=== PATIENT | male | born 1975 | race Two or more races ===

== ENCOUNTER 2016-10-12 02:01 | Emergency (ER) | payer BC ==
[2016-10-12] MEDS ORDERED: Morphine INJ* 4 MG/ML 1 ML CARPUJECT IV ONE ×2 (02:04→02:24)
[2016-10-12] MEDS ORDERED: HYDROmorphone INJ* 1 MG/ML CARPUJECT SYRINGE IV SLOW PU ONE ×2 (03:00→03:59)
--- NOTE | 2016-10-12 03:17 | ED ---
Jose Cabral Rebecca, scribed for Haseeb Galvan MD on 10/12/16 at 0224 . Upper Extremity Pain - HPI Summary HPI Summary: Pt is a 41 y/o M BIBA who presents to ED c/o LUE pain s/p fall. 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 Pt c/o LUE pain that began immediately upon impact. Pain has been constant since onset and is characterized as sharp and severe, ranked 10/10. Sx aggravated by movement, alleviated by nothing. Denies any other pain including MARISCAL and CP. No medication allergies. Occupational injury. - History of Current Complaint Chief Complaint: EDExtremityUpper Stated Complaint: LEFT ARM INJURY Time Seen by Provider: 10/12/16 02:04 Hx Obtained From: Patient Mechanism Of Injury: Fall From Height Of: - approxiamtely 8 feet Onset/Duration: Started Minutes Ago - 45 minutes ago, Traumatic, Still Present Timing: Constant Severity Initially: Severe Severity Currently: Severe Pain Location: Arm - left, Wrist - left Character: Sharp Aggravating Factor(s): Movement Alleviating Factor(s): Nothing Associated Signs & Symptoms: Positive: Negative Related History: Occupational Injury - Allergies/Home Medications Allergies/Adverse Reactions: Allergies Allergy/AdvReac Type Severity Reaction Status Date / Time No Known Allergies Allergy Verified 10/12/16 02:19 PMH/Surg Hx/FS Hx/Imm Hx Previously Healthy: Yes Endocrine/Hematology History: Denies: Hx Diabetes Cardiovascular History: Denies: Hx Hypertension Infectious Disease History: No Infectious Disease History: Denies: Traveled Outside the [place] in Last 30 Days - Family History Known Family History: Positive: Unknown - Pt is a por historian due to pain - Social History Occupation: Employed Full-time Alcohol Use: None Hx Substance Use: No Review of Systems Negative: Chest Pain Positive: Arthralgia - LUE pain; Denies any other pain Negative: Headache All Other Systems Reviewed And Are Negative: Yes Physical Exam Triage Information Reviewed: Yes Vital Signs On Initial Exam: Initial Vitals Temp Pulse Resp BP Pulse Ox 98.4 F 63 16 121/73 99 10/12/16 02:05 10/12/16 02:05 10/12/16 02:05 10/12/16 02:05 10/12/16 02:05 Vital Signs Reviewed: Yes Appearance: Positive: Well-Appearing, Pain Distress - marked pain Skin: Positive: Warm Head/Face: Positive: Normal Head/Face Inspection ENT: Positive: Hearing grossly normal Respiratory/Lung Sounds: Positive: Breath Sounds Present Musculoskeletal: Positive: Other - obvious deformity left forearm, nvi distally Neurological: Positive: Sensory/Motor Intact, NV Bundle Intact Distally Diagnostics - Vital Signs Vital Signs Temp Pulse Resp BP Pulse Ox 10/12/16 02:13 15 10/12/16 02:05 98.4 F 63 16 121/73 99 - Laboratory Lab Statement: Any lab studies that have been ordered have been reviewed, and results considered in the medical decision making process. - Radiology Forearm XR Xray Interpretation: Positive (See Comments) - Comminuted, displaced, distal forearm fracture Radiology Interpretation Completed By: ED Physician Re-Evaluation - Re-Evaluation First Eval Re-Evaluation Time: 05:00 - pt seen, evaluated, splinted in ed by dr rosen Course/Dx - Course Assessment/Plan: Pt is a 41 y/o M BIBA who presents to ED with a CC of left arm/ wrist pain s/p fall from approximately 8 feet high. Denies any other pain including MARISCAL and CP. Occupational injury. Forearm XR reveals a comminuted, displaced distal forearm fracture. Discussed care of pt with Dr. Rosen, orthopedist, who will be coming in to the ED to reduce the fx. Pt was seen and splinted by Dr. Rosen in the ED. Pt will be d/c to home with a dx of forearm fx and a prescription for Percocets. - Diagnoses Provider Diagnoses: Forearm fracture - Physician Notifications Discussed Care Of Patient With: Dr. Rosen, orthopedist, who will reduce the fracture in the ED. Time Discussed With Above Provider: 02:46 - Critical Care Time Critical Care Time: 30-74 min Discharge - Discharge Plan Condition: Improved Disposition: HOME Patient Education Materials: Arm Fracture in Adults (ED) Print Language: PORTUGUESE Additional Instructions: Paper prescription for Percocet is attached. Get filled by home pharmacy. Elevate the arm, take Percocet for pain as prescribed. The documentation as recorded by the Jose hendrix Rebecca accurately reflects the service I personally performed and the decisions made by , Haseeb Galvan MD.
[2016-10-12] MEDS ORDERED: HYDROmorphone INJ* 1 MG/ML CARPUJECT SYRINGE ONE (03:55)
[2016-10-12] MEDS: HYDROmorphone INJ* 1 MG/ML CARPUJECT SYRINGE IV SLOW PU ONE ×2 (04:00→04:05)
[2016-10-12] MEDS ORDERED: oxyCODONE/Acetamin 5/325 MG* TAB PO ONE (05:11)
[2016-10-12] MEDS ORDERED: Ondansetron INJ* 2 MG/ML VIAL ONE (05:14)
[2016-10-12] MEDS ORDERED: Ondansetron INJ* 2 MG/ML VIAL IV ONE (05:15)
--- NOTE | 2016-10-12 07:46 | RAD ---
HISTORY: Fall, left wrist trauma COMPARISONS: None relevant available at the time of dictation VIEWS: 3, Frontal, lateral, and oblique views of the left breast FINDINGS: BONE DENSITY: Normal. BONES: There is a comminuted and dorsally angulated fracture of the distal radial metaphysis with articular extension. There is a nondisplaced fracture of the styloid process of the ulna JOINTS: There is no arthropathy. ALIGNMENT: There is no dislocation. SOFT TISSUES: Unremarkable. OTHER FINDINGS: None. IMPRESSION: COMMINUTED ANGULATED FRACTURE OF THE DISTAL RADIUS WITH ARTICULAR EXTENSION WITH A NONDISPLACED FRACTURE OF THE STYLOID PROCESS OF THE ALIGNMENT
--- NOTE | 2016-10-12 07:51 | RAD ---
INDICATION: Traumatic fracture left wrist was closed reduction COMPARISON: October 12, 2016 TECHNIQUE: AP and lateral views were obtained. FINDINGS: There is interval closed reduction with application of a cast with reduction of displacement and angular deformity. The bony detail is obscured in part by cast material. IMPRESSION: INTERVAL CLOSED REDUCTION.
--- NOTE | 2016-10-12 07:54 | CONS ---
ORTHOPEDIC CONSULTATION NOTE: DATE OF CONSULT: 10/12/16 - EMERGENCY DEPT. CHIEF COMPLAINT: Left wrist pain. HISTORY OF PRESENT ILLNESS: Mr. Dave is a 41-year-old right hand dominant male who fell 8 feet while working sometime around 12:30 a.m. on 10/12/16. He reports he landed on his left upper extremity and immediately had 10/10 pain in the left wrist. He denies any pain in the elbow, shoulder. He reports some left buttock pain. He denies any head trauma or loss of consciousness. The patient reports any attempt to move the left wrist causes severe pain and only immobilization decreases the pain. He denies any prior injury to the wrist. PAST MEDICAL HISTORY: Hepatitis C. PAST SURGICAL HISTORY: None. CURRENT MEDICATIONS: Patient says none. ALLERGIES: No known drug allergies. FAMILY HISTORY: None. REVIEW OF SYSTEMS: Positive for left wrist pain, left buttock pain, recent fall , hepatitis C history. The patient denies fevers, chills, chest pain, shortness of breath, nausea, vomiting, headache or dizziness. Otherwise, review of systems is negative or not relevant. PHYSICAL EXAM: Vitals: Temperature is 98.4, pulse is 75, blood pressure 113/ 72. General: The patient is a well-nourished male lying comfortably in bed. He is alert and oriented x3. Pleasant mood and appropriate affect. He is in obvious pain with exam. Left upper extremity: No tenderness to palpation around the shoulder or elbow. He has obvious deformity at the wrist with extreme tenderness to palpation here and swelling. He refuses to move his thumb or fingers. He reports full sensation to light touch in all nerve distributions and has a 2+ palpable radial pulse. DIAGNOSTIC STUDIES/LAB DATA: Radiographs of the left forearm show no obvious fracture about the elbow or mid shaft forearm. There is a comminuted dorsally displaced intra-articular fracture of the distal radius. There is an ulnar styloid fracture associated. ASSESSMENT AND PLAN: Mr. Dave is a 41-year-old right hand dominant male status post fall from a height of 8 feet with a closed left comminuted dorsally displaced distal radius fracture. This fracture is intraarticular and has an associated ulnar styloid fracture. The patient and I discussed these options. I do feel this will be an operative fracture. Although there is an oblique intraarticular nature to the dorsally displaced fragment, I feel that close reduction will improve the position on the lateral view a significant amount. The patient agrees to have closed reduction at the bedside. PROCEDURE NOTE: 1 mg of IV Dilaudid is given by the nurse at my instruction. 8 cc of 0.5% Marcaine are placed at the fracture site for local hematoma block. This is placed under sterile conditions. A gentle reduction maneuver is performed and the distal radius fracture is reduced and brought out to length without difficulty. The fracture is noted to be unstable on palpation. A well- padded sugar-tong splint is then placed with a posterior strut and covered with an Pete wrap. The patient tolerates the procedure well and has no complications. After close reduction at the bedside and splinting, the patient does have improved pain in the left wrist. He demonstrated some flexion and extension of his thumb as well as his index and long finger. He reports continued intact sensation to light touch. His hand is elevated. I will order new AP and lateral views of the left wrist to ensure a more satisfactory reduction. I explained to the patient that for full reduction of this fracture, he will likely require an open reduction and internal fixation. I have offered him an appointment to see my hand surgeon tomorrow morning here in [place]. He reports he is from [place] and will likely be travelling there. I made it very clear he should contact an orthopedic surgeon within the next 48 hours for appointment and to be evaluated. He is currently neurovascularly intact. He will be given pain medication and be nonweightbearing on the left upper extremity with ice and elevation. [id number]/[facility] #: [id number]
[2016-10-12 09:29] VITALS: BP 109/66
== END 2016-10-12 09:29 | disposition home or self-care (01) ==
LOC: ED 02:01
DX: S52.502A Unspecified fracture of the lower end of left radius, initial encounter for closed fracture (principal); W19.XXXA Unspecified fall, initial encounter; Y93.89 Activity, other specified; Y92.89 Other specified places as the place of occurrence of the external cause
CPT/HCPCS: 25605; 96374; 96375; 96376; 99283; J1170; J2270; J2405